=== PATIENT | male | born 1965 | race American Indian/Alaskan Native ===

== ENCOUNTER 2016-12-17 12:08 | Day surgery (SDC) | payer BC ==
[2016-12-16 11:22] LABS: HEMOGLOBIN 13.5 g/dL (13.6-17.8)
[2016-12-16 11:24] LABS: HEMATOCRIT 40.3 % (40.0-51.0)
--- NOTE | ~2016-12-17 | OP ---
Record Of Operation [facility] [address] [place]. [address] NAME: MAGALY SAHNI 5RD : 69 [place] [facility] [place] [id number] AGE: 51 ADM/REG DATE : 12/17/16 MR#: [id number] REPORT SERV DATE: 12/17/16 DICTATED BY: Alex RIBERA DATE: 12/17/16 REPORT STATUS : Draft TRANSCRIBED BY: MODL DATE: 12/17/16 DATE OF PROCEDURE: 12/17/2016 PREOPERATIVE DIAGNOSIS: Left distal ureteral stone. POSTOPERATIVE DIAGNOSIS: Left distal ureteral stone. PROCEDURE: Cystoscopy, left retrograde pyelography, rigid and flexible ureteroscopy, ureteral dilation, double-J stent placement. ANESTHESIA: General. COMPLICATIONS: None. DRAINS: 7-British x 24 cm Contour double-J stent (on a string). BRIEF HISTORY: Mr. Sahni is a 51-year-old male who developed left flank pain and was found to have a proximal ureteral stone about on 12/01/2016. His pain subsided over time but he never passed a stone. Followup KUB showed the stone had moved to the left UVJ. He also had some azotemia with a creatinine as high as 2.41. His creatinine preoperatively today was 2.14. I discussed with him earlier that both due to his elevated creatinine and his continued discomfort that we should consider endoscopic stone management. He wanted to proceed this week. We discussed the risks of bleeding, infection, anesthesia, injury to adjacent organs, need for postoperative stent, etc. There were no unanswered questions. Also discussed with he and his the significance of his elevated creatinine. DESCRIPTION OF PROCEDURE: Under excellent general anesthesia, the patient was prepped and draped in the standard lithotomy position. Cystoscopy was performed with the 30-degree lens, revealed a normal anterior urethra. The posterior urethra showed some mild lateral lobe BPH. Inspection of the bladder revealed no tumors, stones, or foreign bodies. The right orifice was completely normal. The left orifice was inflamed, consistent with either current or recent stone. An 8-British cone-tipped catheter was used to perform a left retrograde pyelogram. It showed some fullness of the left ureter. I inserted an angled glidewire through a 5-British open-ended catheter up to the level of the collecting system and then a short rigid ureteroscope was passed with ease into the collecting system. There was evidence of edema within the intravesical ureter but I could follow the ureter all the way up to its most proximal aspect and saw no evidence of stone. I felt obliged to try to rule out a proximal excursion of the stone and I inserted a 9/11 ureteral access sheath which entered with ease. I then used a flexible ureteroscope into the kidney and saw no evidence of residual stone in the kidney. My only suspicion is that he passed the stone in the recent preoperative period. I left the collecting system dilutely opacified, replaced the wire and retrofitted into the cystoscope. I placed a 7-British x 24 cm Contour double-J stent which coiled nicely in the renal pelvis and bladder due to his aversion to stent removal in the office and the fact that I had not had to dilate anything significantly, I left the string attached, ultimately taped to the penis with Mastisol and Tegaderm. I plan to discharge Mr. Sahni as an outpatient with the following instructions: Record Of Operation [address] [address] NAME: MAGALY SAHNI 5RD : 69 [place] [facility] [place] [id number] AGE: 51 ADM/REG DATE : 12/17/16 MR#: [id number] REPORT SERV DATE: 12/17/16 DICTATED BY: Alex RIBERA DATE: 12/17/16 REPORT STATUS : Draft TRANSCRIBED BY: CUONG DATE: 12/17/16 DISCHARGE INSTRUCTIONS: 1. Home today. 2. Okay for the patient to pull his stent on Tuesday12/20/2016. 3. Percocet 5/325 one to two p.o. q.4 hours p.r.n. pain, #20. 4. Zofran 4 mg one p.o. q.4 hours p.r.n. nausea and vomiting, #16 with one refill. 5. Pyridium 200 mg one p.o. t.i.d. p.r.n. bladder pain, #15 with one refill. 6. Since we did not retrieve the stone, I do not know that it is important I see him back in followup unless he wants to talk about general stone prevention options. I do think that his creatinine needs to be followed up and I encouraged his to have him see Dr. Moe within a week or so, so that it can be managed appropriately. If he has any other issues, I would be happy to see him at any time. PATTI/CUONG Alex Ribera M.D. / [id number] CC: Hamida Hu M.D.
[~2016-12-17 12:08] MED LIST: ASAB PO; DULERA 100 MCG/13 GM INH; FLOMAX4 PO; INCRUSE ELLI62.5 MCG INH; MAX25 PO; MICARDIS80 PO; MONODOX100 MG PO; NEXIUM40 PO; PERCOCET 10/3251 TAB PO; PR25 PO; PRILOSEC40 MG PO; PROAIR HFA INH; SINGULAIR1 PO; SYMBICORT 160/41 INH INH; ZESTRIL20 MG PO
[2016-12-17 13:05] LABS: BUN (BLOOD UREA NITROGEN) 27 MG/DL (6-23); CALCIUM, SERUM 9.1 MG/DL (8.5-10.4); CHLORIDE, SERUM 104 MMOL/L (96-112); CO2 (CARBON DIOXIDE) 28 MMOL/L (24-34); CREATININE 2.14 MG/DL (0.70-1.30); GFR AFRICAN AMERICAN 41 ML/MIN (>=60); GFR NON AFRICAN AMERICAN 35 ML/MIN (>=60); GLUCOSE, SERUM 89 MG/DL (60-99); POTASSIUM, SERUM 4.3 MMOL/L (3.5-5.3); SODIUM, SERUM 137 MMOL/L (135-148)
== END 2016-12-17 17:22 | disposition home or self-care (01) ==
LOC: SDC 12:08
PROC: BT1FZZZ Fluoroscopy of Left Kidney, Ureter and Bladder (ICD-10-PCS; 2016-12-17)
PROC: 0T778DZ Dilation of Left Ureter with Intraluminal Device, Via Natural or Artificial Opening Endoscopic (ICD-10-PCS; principal; 2016-12-17 14:00)
DX: N20.1 Calculus of ureter (principal); J45.909 Unspecified asthma, uncomplicated; K21.9 Gastro-esophageal reflux disease without esophagitis; I10 Essential (primary) hypertension; E11.9 Type 2 diabetes mellitus without complications; L97.929 Non-pressure chronic ulcer of unspecified part of left lower leg with unspecified severity; Z98.52 Vasectomy status; Z79.891 Long term (current) use of opiate analgesic; Z79.899 Other long term (current) drug therapy; Z79.82 Long term (current) use of aspirin
CPT/HCPCS: 74420; 80048; 85014; 85018; 93005; C1758; C1769; C1874; C1894; J0330; J2250; J2405; J2710; J3010; Q9967